=== PATIENT | male | born 1960 | race Caucasian/White ===

== ENCOUNTER 2017-10-02 09:06 | Inpatient (IN) ==
[~2017-10-02 09:06] MED LIST: 0.9 % SODIUM CHLORIDE 9 ML, KETOROLAC 30 MG, ROPIVACAINE HCL/PF 49.5 ML, EPINEPHrine 0.... IJ SCH; ACETAMINOPHEN 500 MG TABLET PO SCH; CELECOXIB 200 MG CAPSULE PO SCH; PREGABALIN 75 MG CAPSULE PO SCH; ceFAZolin 1 GM VIAL IV SCH; oxyCODONE 10 MG TAB.ER.12H PO SCH
[2017-10-02] MEDS ORDERED: IPRATROPIUM/ALBUTEROL 3 ML AMPUL.NEB NEB ONE (09:17)
[2017-10-02 11:08] LABS: Appearance,Urine CLEAR; Bacteria,Urine 0 /hpf (0); Bilirubin,Urine NEG (NEG); Color,Urine YELLOW; Glucose,Urine (UA) NEGATIVE (NEG); Leukocyte Esterase,Urine NEG /uL (NEG); Mucus,Urine FEW /hpf (0); Protein,Urine NEG (NEG); Specific Gravity,Urine 1.014 (1.000-1.035); Urine Blood 0.03 mg/dL (<0.03); Urine RBC 3 /hpf (0-1); Urine Squamous Epithelial Cell < 1 /hpf (0-4); Urine WBC 1 /hpf (0-4); Urobilinogen,Urine NEG (NEG)
[2017-10-02] MEDS ORDERED: MIDAZOLAM 2 MG/2 ML VIAL IV ONE (12:35)
[2017-10-02] MEDS ORDERED: LIDOCAINE HCL/PF 100 MG/5 ML SYRINGE IV ONE (12:35)
[2017-10-02] MEDS ORDERED: TRANEXAMIC ACID 1,000 MG/10 ML VIAL IV ONE ×2 (12:35→14:05)
[2017-10-02] MEDS ORDERED: KETAMINE 100 MG/ML ML IV ONE (12:35)
[2017-10-02] MEDS ORDERED: PROPOFOL 200 MG/20 ML VIAL IV ONE (12:35)
[2017-10-02] MEDS ORDERED: ROPIVACAINE HCL/PF 20 ML VIAL IJ ONE (12:35)
[2017-10-02] MEDS ORDERED: ONDANSETRON 4 MG/2 ML VIAL IV ONE (12:35)
[2017-10-02] MEDS ORDERED: ESMOLOL 100 MG/10 ML VIAL IV ONE (12:35)
[2017-10-02] MEDS ORDERED: DEXAMETHASONE 10 MG/ML VIAL IV ONE (12:35)
[2017-10-02] MEDS ORDERED: GENTAMICIN SULFATE 800 MG/20 ML VIAL IR ONE (13:23)
[2017-10-02] MEDS ORDERED: TEMAZEPAM 15 MG CAPSULE PO PRN (14:05)
[2017-10-02] MEDS ORDERED: FLEETS ADULT ENEMA PR PRN (14:05)
[2017-10-02] MEDS ORDERED: MAGNESIUM HYDROXIDE 30 ML ORAL.SUSP PO PRN (14:05)
[2017-10-02] MEDS ORDERED: BENZOCAINE/MENTHOL 1 LOZENGE PO PRN ×2 (14:05→14:36)
[2017-10-02] MEDS ORDERED: ONDANSETRON 4 MG/2 ML VIAL IV PRN ×2 (14:05→14:36)
[2017-10-02] MEDS ORDERED: ACETAMINOPHEN 325 MG TABLET PO PRN (14:05)
[2017-10-02] MEDS ORDERED: POLYETHYLENE GLYCOL 3350 17 GM PACKET PO PRN (14:05)
[2017-10-02] MEDS ORDERED: BISACODYL 10 MG SUPP.RECT PR PRN (14:05)
[2017-10-02] MEDS ORDERED: oxyCODONE/APAP 5/325MG TABLET PO PRN (14:08)
[2017-10-02] MEDS ORDERED: ALBUTEROL SULFATE 1 PUFF INHALER INH PRN (14:08)
[2017-10-02] MEDS ORDERED: NALOXONE HCL 0.4 MG/ML VIAL IV PRN (14:36)
[2017-10-02] MEDS ORDERED: FLUMAZENIL 0.1 MG/ML ML IV PRN (14:36)
[2017-10-02] MEDS ORDERED: MEPERIDINE 25 MG/ML SYRINGE IV PRN (14:36)
[2017-10-02] MEDS ORDERED: LACTATED RINGERS 250 ML IV PRN (14:36)
[2017-10-02] MEDS ORDERED: METHOCARBAMOL 1,000 MG/10 ML VIAL IV PRN (14:36)
[2017-10-02] MEDS ORDERED: IPRATROPIUM/ALBUTEROL 3 ML AMPUL.NEB NEB PRN ×2 (14:36→14:40)
[2017-10-02] MEDS ORDERED: LORazepam 2 MG/ML VIAL IV ONE (14:38)
[2017-10-02] MEDS: fentaNYL 100 MCG/2 ML VIAL IV PRN ×4 (14:38→14:44)
[2017-10-02] MEDS ORDERED: PROMETHAZINE 25 MG/ML VIAL IM PRN (14:40)
[2017-10-02] MEDS ORDERED: MEPERIDINE 50 MG/ML INJECTION IM PRN (14:40)
[2017-10-02] MEDS ORDERED: fentaNYL 100 MCG/2 ML VIAL IV ONE (14:44)
[2017-10-02] MEDS ORDERED: LORazepam 2 MG/ML VIAL ONE (14:44)
[2017-10-02] MEDS ORDERED: LACTATED RINGERS 1,000 ML IV SCH (14:45)
[2017-10-02] MEDS ORDERED: HYDROmorphone 2 MG/ML VIAL IV ONE (14:48)
[2017-10-02] MEDS ORDERED: HYDROmorphone 2 MG/ML VIAL ONE (14:54)
[2017-10-02] MEDS ORDERED: diphenhydrAMINE 50 MG/ML VIAL IV ONE (14:57)
[2017-10-02] MEDS ORDERED: diphenhydrAMINE 50 MG/ML VIAL ONE (15:01)
[2017-10-02] MEDS ORDERED: LORazepam 2 MG/ML VIAL IV PRN (15:28)
[2017-10-02] MEDS ORDERED: HALOPERIDOL LACTATE 5 MG/ML VIAL IV PRN (15:29)
--- NOTE | 2017-10-02 15:50 | XRay Report ---
HISTORY: Reason for Exam:Post-Op Total Knee FINDINGS: There is a well positioned total knee prosthesis. No fracture is present. There is overlying artifact from a brace placed behind the knee. IMPRESSION: Well-positioned left knee prosthesis Interpreted and Authenticated by: Ross Berkowitz 10/02/17
--- NOTE | 2017-10-02 16:30 | Brief Operative Note ---
Date of procedure: 10/02/17 Pre-op diagnosis: left knee djd with contracture Post-op diagnosis: same Procedure: left tka with robot Grafts/Implants: Yes Anesthesia: GETA Complications: none Surgeon: Keaton Huertas [employer] Furnace Tender: Henry Delgado Estimated blood loss (cc): 50 Tourniquet Time (Minutes): 45 Specimens Removed/Pathology: none sent Condition: stable Disposition: PACU
[2017-10-02] MEDS: KETOROLAC 15 MG/ML VIAL IV SCH ×2 (17:00→23:45)
[2017-10-02] MEDS: 0.45 % SODIUM CHLORIDE 1,000 ML IV SCH (17:00)
[2017-10-02] MEDS: HYDROcodone/APAP 10/325MG TABLET PO PRN (19:11)
[2017-10-02] MEDS: ceFAZolin 1 GM VIAL IV SCH (20:30)
[2017-10-02] MEDS: DOCUSATE SODIUM 100 MG CAPSULE PO SCH (20:30)
[2017-10-02] MEDS: 0.9 % SODIUM CHLORIDE 10 ML SYRINGE IV SCH (20:31)
[2017-10-02] MEDS: ASPIRIN 325 MG ENTERIC COATED TABLET PO SCH (20:31)
[2017-10-02] MEDS ORDERED: SENNOSIDES 1 TABLET PO SCH (21:00)
[2017-10-02] MEDS: HYDROmorphone 2 MG/ML VIAL IV PRN ×2 (22:23→22:50)
[2017-10-03] MEDS: HYDROcodone/APAP 10/325MG TABLET PO PRN ×4 (00:17→12:43)
[2017-10-03] MEDS: HYDROmorphone 2 MG/ML VIAL IV PRN ×4 (01:28→11:02)
[2017-10-03] MEDS: 0.45 % SODIUM CHLORIDE 1,000 ML IV SCH ×2 (02:25→10:18)
[2017-10-03] MEDS: ceFAZolin 1 GM VIAL IV SCH (04:05)
[2017-10-03] MEDS: 0.9 % SODIUM CHLORIDE 10 ML SYRINGE IV SCH (05:40)
[2017-10-03] MEDS: KETOROLAC 15 MG/ML VIAL IV SCH ×2 (05:43→11:02)
--- NOTE | 2017-10-03 07:11 | Operative Note ---
DATE OF OPERATION: 10/02/2017 PREOPERATIVE DIAGNOSIS: Left knee degenerative arthritis. POSTOPERATIVE DIAGNOSIS: Left knee degenerative arthritis. PROCEDURE: Left robotic total knee arthroplasty. SURGEON: Keaton Huertas MD SCRATCH BRUSHER: Henry Delgado PA-C. ANESTHESIA: General LMA anesthesia. COMPLICATIONS: None. TOTAL TOURNIQUET TIME: 45 minutes. DESCRIPTION OF PROCEDURE: The patient was brought to the operating room and put to sleep with general LMA anesthesia. Once the timeout had been performed and we confirmed the operative site, preop antibiotics and tranexamic acid given. We then made a midline incision through the knee. Tourniquet inflated to 250 pounds of pressure and then we exposed the joint. This shows such severe arthritis. He had 30 degrees of varus malalignment and about 13 degrees of flexion contracture. Because of this, we used the robot. The robot had two pins placed above and below the knee, registered the center of hip rotation, registered medial and lateral malleolus, registered the intraarticular pins, registered 30 points by touching the femoral and 30 points on the tibia. We balanced the knee at 30, 45 and 90. This seemed to fit very nicely. We irrigated thoroughly and then brought in the robot, registered the robot, made our tibial cut first and then made our femoral cuts both posterior and anterior cuts and the distal femoral cut. We then changed the saw blade and made our chamfer cuts and a distal cut. These all seemed to come out very nicely. We removed more osteophytes and loose bodies and spurs posteriorly, removed the remnant of the meniscus. We then placed the tibial baseplate. Once the baseplate have been placed and rotation set by the robot assistance we then punched this into place. We placed the trial, placed the femoral trial, lateralized as far lateral and then prepared the patella after placing 11 mm poly. We did release the deep head and some of the superficial head of the medial collateral ligament to balance the knee. This brought it back very straight in alignment perfectly. This was noted by the robot. We then resurfaced the patella. His total thickness measured an amazing 27 mm. We cut the patella to [address] a 36 mm patellar button. It covered nicely. A small chamfer cut was made laterally and then we cemented all the components in. The knee was very stable. We removed excess cement and kept the knee at 45 degrees, deflated the tourniquet at 45 minutes and then closed the mid vastus approach with #1 Stratafix x2 sutures. We closed the skin with 2-0 Vicryl and adhesive closure. The patient tolerated this well. There were no complications. The upper and lower incisions were closed with 4-0 nylon and the intraarticular pins had been removed. We irrigated thoroughly and then placed a sterile bandage. The patient tolerated this well without complication. RBH:tristan Job ID: [id number] Doc ID: [id number] Keaton Huertas MD
[2017-10-03] MEDS ORDERED: OMEPRAZOLE 20 MG CAPSULE PO SCH (07:30)
--- NOTE | 2017-10-03 07:58 | Orthopedic Progress Note ---
Subjective Patient information: Note initiated : 10/03/17 at 7:57 am Service Date, if different from initiated Date: [] Patient: Leighton Brock 57 y/o M admitted on 10/02/17 for Left Total Arthroplasty Knee Bear. Chief Complaint: [Pt is stable this morning on post operative day 1 without any significant concerns or complaints. Patients vital signs have remained stable. Patients dressing is dry and is grossly instact from a neurovascular and motor standpoint. Patients 10 point ROS is otherwise negative. ] Objective Vital signs: Vital Signs Temp Pulse Pulse Resp BP Pulse Ox 10/03/17 06:53 95 10/03/17 06:49 98 F 91 H 16 114/70 95 10/03/17 04:00 97.9 F 88 16 114/69 95 10/03/17 01:35 92 10/03/17 00:10 96 10/03/17 00:00 98.7 F 106 H 16 102/68 96 10/02/17 23:45 96 10/02/17 23:30 97 10/02/17 21:42 80 18 96 10/02/17 20:25 97 10/02/17 20:00 98.9 F 92 H 16 136/89 95 10/02/17 19:57 95 10/02/17 19:00 96 10/02/17 18:55 96 10/02/17 18:06 95 10/02/17 17:16 101/66 95 10/02/17 16:47 109/74 94 10/02/17 16:33 105/62 94 10/02/17 16:17 107/71 93 10/02/17 16:02 112/72 92 10/02/17 15:47 111/75 94 10/02/17 15:37 95 H 16 118/72 96 10/02/17 15:27 98 H 16 126/64 96 10/02/17 15:12 103 H 12 136/78 95 10/02/17 14:58 108 H 18 134/79 94 10/02/17 14:43 109 H 16 130/99 94 10/02/17 14:28 98.4 F 119 H 19 141/88 92 10/02/17 14:06 92 10/02/17 10:01 97.7 F 18 128/86 91 Intake and Output 10/02/17 10/03/17 10/03/17 21:59 05:59 13:59 Intake Total 3100 / 3100 3042 / 3042 Output Total 800 / 800 2450 / 2450 900 / 900 Balance 2300 / 2300 592 / 592 -900 / -900 Intake: IV 2100 / 2100 942 / 942 Sodium Chloride 0.45% 1,000 ml 942 / 942 @ 100 mls/hr IV .Q10H DESMOND Rx#: [id number] Oral 1000 / 1000 2100 / 2100 Output: Urine Catheter Amount 600 / 600 2450 / 2450 900 / 900 Uretheral (Blake) 900 / 900 Estimated Blood Loss 200 / 200 Other: Meal Soup, crackers(3) fruit cup & 1 ice cream Percent of Meal Consumed 100% 100% Feeding Ability Independent Weight 211 lb Intake & Output: Intake & Output 10/02/17 10/03/17 10/03/17 21:59 05:59 13:59 Intake Total 3100 / 3100 3042 / 3042 Output Total 800 / 800 2450 / 2450 900 / 900 Balance 2300 / 2300 592 / 592 -900 / -900 Weight 211 lb Intake: IV 2100 / 2100 942 / 942 Sodium Chloride 0.45% 1,000 ml 942 / 942 @ 100 mls/hr IV .Q10H DESMOND Rx#: [id number] Oral 1000 / 1000 2100 / 2100 Output: Urine Catheter Amount 600 / 600 2450 / 2450 900 / 900 Uretheral (Blake) 900 / 900 Estimated Blood Loss 200 / 200 Other: Meal Soup, crackers(3) fruit cup & 1 ice cream Percent of Meal Consumed 100% 100% Feeding Ability Independent Incision: Yes healing Weight bearing status: full Neurological exam IM: Yes motor sensory intact, Yes neurovascular intact Extremities exam IM: Yes Foot pink and warm, Yes neurovascular intact - Labs CBC & BMP: 10/03/17 04:00 Labs: Orthopedic Labs 10/02/17 09:49 POC PT 12.5 POC INR 1.0 10/03/17 04:00 Hct 39.8 L Assessment and Plan (1) Hx of total knee arthroplasty The patient has been educated regarding dressing care, Physical Therapy recommendations, home exercises, restrictions, and follow up appointments. The patient has had all necessary DME prescribed. The patient has remained relatively stable during their hospital course. Leave Dermabond patch intact until followup Status: Acute
--- NOTE | 2017-10-03 08:01 | Discharge Summary ---
Ortho Discharge - TKA - Patient Instructions Diet: Regular Diet Activity: activity as tolerated, weight bearing as tolerated Total Knee Protocol: For Total Knee: Start ROM CHINO with stationary bike or rocking chair. Work on gaining full extension of knee. Posterior dislocation precautions provided. Hip abductor strengthening and gait training instructions provided. Apply Cryocuff as instructed. Dressing Care: May shower in 2 days Patient Education: Total Knee Replacement (DC) - Problem Maintenance (1) Hx of total knee arthroplasty Status: Acute - Follow Up Plan Follow Up Appointments: Keaton Huertas MD [Physician] - 10/17/17 3:00 pm Disposition: Home, Self-Care Prognosis: Good Rehab Potential: Good I certify that the patient requires SNF services: No Overall status at discharge: patient is progressing back to baseline - Orders For Discharge Prescriptions: Aspirin [Ecotrin] 325 mg PO BID #60 tab.ec Docusate Sodium [Colace] 100 mg PO BID #60 capsule oxyCODONE/APAP [Percocet 5-325 mg] 1 - 2 tab PO Q4-6H PRN #75 tablet PRN Reason: Pain
[2017-10-03] MEDS: ASPIRIN 325 MG ENTERIC COATED TABLET PO SCH (08:36)
[2017-10-03] MEDS: DOCUSATE SODIUM 100 MG CAPSULE PO SCH (08:36)
== END 2017-10-03 13:47 | disposition home or self-care (01) | DRG 470 ==
LOC: MEDSUR 09:06
PROVIDERS: ADMIT Orthopaedic Surgery; ATTEND Orthopaedic Surgery